=== PATIENT | male | born 1935 | race Caucasian/White ===

== ENCOUNTER 2020-03-29 09:30 | Outpatient (REF) | payer MEDICARE, SELFPAY ==
[2020-03-29 10:29] LABS: Estimated Average Glucose 235 mg/dL; Hemoglobin A1c % 9.8 %
== END 2020-03-29 09:31 | disposition home or self-care (01) ==
LOC: HO.LAB 09:30
PROVIDERS: PCP Internal Medicine; Visit Provider Nurse Practitioner Gerontology
DX: E11.65 Type 2 diabetes mellitus with hyperglycemia (principal)
CPT/HCPCS: 36415; 83036

== ENCOUNTER → 2020-03-30 10:20 | Outpatient (BNVA) | payer MEDICARE, SELFPAY | PROVIDERS: PCP Internal Medicine; Referring Provider Internal Medicine; Visit Provider Nurse Practitioner Gerontology | DX: E11.65 Type 2 diabetes mellitus with hyperglycemia (principal); E11.40 Type 2 diabetes mellitus with diabetic neuropathy, unspecified; E11.21 Type 2 diabetes mellitus with diabetic nephropathy; E78.00 Pure hypercholesterolemia, unspecified; Z79.4 Long term (current) use of insulin | CPT/HCPCS: 99213; Q3014 ==

== ENCOUNTER → 2020-05-10 10:14 | Outpatient (BNVA) | payer MEDICARE, SELFPAY | PROVIDERS: PCP Internal Medicine; Referring Provider Internal Medicine; Visit Provider Nurse Practitioner Family | DX: I48.92 Unspecified atrial flutter (principal); I25.10 Atherosclerotic heart disease of native coronary artery without angina pectoris; I25.5 Ischemic cardiomyopathy; E78.00 Pure hypercholesterolemia, unspecified; Z79.899 Other long term (current) drug therapy; Z95.1 Presence of aortocoronary bypass graft; Z95.810 Presence of automatic (implantable) cardiac defibrillator | CPT/HCPCS: 93005; 99212 ==

== ENCOUNTER 2020-06-02 03:16 | Inpatient (IN) | payer MEDICARE, SELFPAY ==
[2020-06-02] VITALS (14 sets, daily range): BP systolic 97–138; BP diastolic 34–71; PULSE 85–125; RESP 18–34; TEMP 36.9–39; O2SAT 90–96; BMI 22.2
--- NOTE | 2020-06-02 03:23 | ED.GENADULT ---
HPI - General Adult General Chief complaint: Urogenital-Male Stated complaint: hematuria and tremors Time Seen by Provider: 06/02/20 03:20 Source: patient and EMS Mode of arrival: EMS Limitations: no limitations History of Present Illness HPI narrative: patient comes to the emergency room complaining of hematuria since yesterday. Patient states he is urinating bright red blood. Patient also complaining of dysuria, no flank pain, no fever. Patient has history of Alzheimer's and is unable to give accurate history. Per patient's medical history, patient has history of bladder cancer, is currently on Eliquis for atrial flutter, history of Alzheimer's, coronary artery disease and type 2 diabetes MD complaint: hematuria, dysuria Related Data Home Medications Medication Instructions Recorded Confirmed allopurinol 100 mg tablet 100 mg PO DAILY 03/30/20 06/02/20 emtricitabine 200 mg-tenofovir 1 tab PO DAILY 03/30/20 06/02/20 alafenamide fumarate 25 mg tablet insulin glargine 100 unit/mL 30 unit SUBCUT DAILY ml 03/30/20 06/02/20 subcutaneous solution sertraline 25 mg tablet 25 mg PO DAILY 03/30/20 06/02/20 tamsulosin 0.4 mg capsule 0.4 mg PO DAILY 03/30/20 06/02/20 terazosin 1 mg capsule 1 mg PO DAILY 03/30/20 06/02/20 dolutegravir 50 mg tablet 50 mg PO DAILY 04/30/20 06/02/20 donepezil 10 mg tablet 10 mg PO BEDTIME 04/30/20 06/02/20 ezetimibe 10 mg tablet 10 mg PO DAILY 04/30/20 06/02/20 metoprolol succinate 25 mg 25 mg PO DAILY 04/30/20 06/02/20 tablet,extended release 24 hr Previous Rx's Medication Instructions Recorded atorvastatin 80 mg tablet 80 mg PO DAILY 90 Days #90 tab 03/28/20 metformin 500 mg tablet 500 mg PO BID 90 Days #180 tab 03/28/20 insulin lispro 100 unit/mL See Rx Instructions SUBCUT 03/30/20 subcutaneous solution .COMPLEX 30 Days #10 ml apixaban 5 mg tablet 5 mg PO BID 30 Days #60 tab 05/10/20 lansoprazole 30 mg capsule,delayed 30 mg PO DAILY #90 cap 11/18/20 release Allergies Allergy/AdvReac Type Severity Reaction Status Date / Time Penicillins Allergy Intermediate RASH Verified 04/30/20 11:08 Review of Systems Review of Systems: Constitutional denies your chills ENT/Mouth :No Ear Pain, No Nasal Congestion, No Sinus Pain, No Hoarseness, No sore throat, No Rhinorrhea, No Swallowing Difficulty Eyes: No Eye Pain, No Swelling, No Redness, No Foreign Body, No Discharge, No Vision Changes Cardiovascular : No Chest Pain, No SOB, No Dyspnea on Exertion, No Orthopnea, no palpitations Respiratory : No Cough, No Sputum, No Wheezing, No Smoke Exposure, No Dyspnea Gastrointestinal : No Nausea, No Vomiting, No Diarrhea, No Constipation, No abdominal Pain, No Hematochezia, No Melena Genitourinary : patient complaining of dysuria and hematuria Musculoskeletal : No joint pain, No Myalgias, No Joint Swelling Skin : No Skin Lesions, No rash Neuro : No Weakness, No Numbness, No Paresthesias, No Loss of Consciousness, No Dizziness, No Headache Psych : No Anxiety/Panic, No Depression, No SI/HI/AH/VH, No Social Issues, Heme/Lymph: No Bruising, No Bleeding,No Lymphadenopathy Endocrine : No Polyuria, No Polydipsia, No Temperature Intolerance PMFSH Past Medical History Medical History Alzheimer disease Atrial flutter, paroxysmal Coronary artery disease Hemorrhoids HIV positive Hx of bladder cancer Hypercholesterolemia Ischemic cardiomyopathy Low back pain Type 2 diabetes mellitus with hyperglycemia Urethral stricture Surgical History History of appendectomy History of carpal tunnel release History of implantable cardiac defibrillator (ICD) History of mandibular surgery Hx of cardiac cath (~11/2015) Hx of cholecystectomy Hx of coronary artery bypass graft Hx of cystoscopy Hx of eye surgery Hx of lithotripsy Hx of removal of cyst Hx of umbilical hernia repair Family History Family History Father Diabetes Brother Diabetes Social History Social History Alcohol intake: never Smoking Status: Never smoker Use of substances other than those prescribed or required for medical reasons: No Advance Directives: No Physical Exam Vital Signs: Vital Signs: Last Vital Signs Temp 100.4 F 06/02/20 05:02 Pulse 120 H 06/02/20 05:02 Resp 30 H 06/02/20 05:02 BP 128/71 06/02/20 05:02 Pulse Ox 96 06/02/20 05:02 Body Mass Index 22.2 Appearance: Alert. No acute distress. Eyes: Pupils equal, round and reactive to light. ENT: Pharynx normal. Neck: Normal inspection. Neck supple. No lymph nodes noted. No crepitus CVS: Normal heart rate and rhythm. Pulses normal. Normal S1 and S2 Respiratory: No respiratory distress. Breath sounds normal. No Wheezing. No rales Abdomen: Soft , tender to palpation in suprapubic area. No rigidity. No distention. good BS x4 Skin: Skin warm and dry. Normal skin color. Normal skin turgor. Extremities: No lower extremity edema. No lower extremity edema. No Lacerations. No Rash Neuro: Oriented X 3. No motor deficit. No sensory deficit. Moving all extermities. No slurred speech. Course Course Course Narrative: family and patient did not report any fever, however on arrival, patient's temperature initially 98.5 oral, since patient was tachycardic, rectal temperature checked, 102. at this time (4:23am), it is suspected that patient may be septic, possibly from a urinary tract infection, Levaquin was started as emperic treatment. Patient is allergic to penicillin. patient's urinalysis is not convincing for urinary tract infection. , patient does not have an elevated lactic and white blood cell count is within normal limits, etiology is likely viral. patient's bladder was rinsed with van back with CBI, patient's urine is now clear, no longer passing blood or blood clots. It is possible that patient's hematuria secondary to Eliquis versus recurrent bladder cancer Chest x-ray and COVID avid test returned, positive for COVID-19 I discussed the patient with our hospitalist, patient being admitted. Medical Decision Making Lab Data Result diagrams: 06/02/20 03:40 06/02/20 03:40 Labs: Lab Results 06/02/20 06/02/20 06/02/20 Range/Units 03:26 03:40 03:40 WBC 9.3 (4.8-10.8) X10*3/uL RBC 4.22 L (4.60-5.80) X10*6/uL Hgb 14.0 (14.0-18.0) g/dl Hct 42.2 (42-52) % MCV 100.0 H (80-98) fL MCH 33.2 H (27.0-33.0) pg MCHC 33.2 (31.0-36.0) g/dl RDW 14.2 (11.0-16.0) % Plt Count 179 (160-400) X10*3/uL MPV 10.3 (9.4-12.4) fL Immature Gran % (Auto) 0.3 (0.0-0.4) % Neut % (Auto) 89.0 H (45-73) % Lymph % (Auto) 6.5 L (20-40) % [place] % (Auto) 4.0 (2-11) % Eos % (Auto) 0.0 (0-4) % Baso % (Auto) 0.2 (0-2) % Lymph # (Auto) 0.6 L (1.2-4.9) X10*3/uL [place] # (Auto) 0.4 (0.1-1.2) X10*3/uL Eos # (Auto) 0.0 (0.0-0.4) X10*3/uL Baso # (Auto) 0.0 (0.0-0.2) X10*3/uL Abs Immat Gran (auto) 0.03 (0.00-0.03) X10*3/uL Absolute Neuts (auto) 8.3 (2.0-8.3) X10*3/uL Absolute Nucleated RBC 0.000 (0.0-0.012) X10*3/uL Nucleated RBC % (auto) 0.0 (0.0-0.2) /100WBC Smear Tech's Comments VERIFIED Sodium 139 (135-145) mmol/L Potassium 4.1 (3.3-5.1) mmol/l Chloride 103 (96-108) mmol/L Carbon Dioxide 22 (22-29) mmol/L Anion Gap 18 (12-20) BUN 17 H (9-16) mg/dL Creatinine 1.17 (0.5-1.4) mg/dL Estim Creat Clear Calc 44.0 Estimated GFR 59 POC Glucose 246 H (60-115) mg/dL Random Glucose 245 H (60-115) mg/dL Lactic Acid (0.5-2.0) mmol/L Calcium 8.3 L (8.4-10.2) mg/dL Total Bilirubin (0.0-1.0) mg/dL Direct Bilirubin (0.0-0.5) mg/dL AST (5-37) U/L ALT (0-40) U/L Alkaline Phosphatase (39-117) U/L Total Protein (6.5-8.0) g/dL Albumin (3.5-5.0) g/dL Urine Color Urine Appearance Urine pH (5.0-8.0) Ur Specific [place] (1.005-1.025) Urine Protein (NEG-TRACE) MG/DL Urine Glucose (UA) (NEG) MG/DL Urine Ketones (NEG) MG/DL Urine Blood (NEG) Urine Nitrite (NEG) Ur Leukocyte Esterase (NEG) Urine RBC (0) /HPF Urine WBC (0-4) /HPF Ur Squamous Epith Cells /LPF Urine Bacteria /LPF Urine Yeast /HPF COVID-19 (DERIC) (Negative) COVID-19 Clin Com 06/02/20 06/02/20 06/02/20 Range/Units 03:57 04:13 04:13 WBC (4.8-10.8) X10*3/uL RBC (4.60-5.80) X10*6/uL Hgb (14.0-18.0) g/dl Hct (42-52) % MCV (80-98) fL MCH (27.0-33.0) pg MCHC (31.0-36.0) g/dl RDW (11.0-16.0) % Plt Count (160-400) X10*3/uL MPV (9.4-12.4) fL Immature Gran % (Auto) (0.0-0.4) % Neut % (Auto) (45-73) % Lymph % (Auto) (20-40) % [place] % (Auto) (2-11) % Eos % (Auto) (0-4) % Baso % (Auto) (0-2) % Lymph # (Auto) (1.2-4.9) X10*3/uL [place] # (Auto) (0.1-1.2) X10*3/uL Eos # (Auto) (0.0-0.4) X10*3/uL Baso # (Auto) (0.0-0.2) X10*3/uL Abs Immat Gran (auto) (0.00-0.03) X10*3/uL Absolute Neuts (auto) (2.0-8.3) X10*3/uL Absolute Nucleated RBC (0.0-0.012) X10*3/uL Nucleated RBC % (auto) (0.0-0.2) /100WBC Smear Tech's Comments Sodium (135-145) mmol/L Potassium (3.3-5.1) mmol/l Chloride (96-108) mmol/L Carbon Dioxide (22-29) mmol/L Anion Gap (12-20) BUN (9-16) mg/dL Creatinine (0.5-1.4) mg/dL Estim Creat Clear Calc Estimated GFR POC Glucose (60-115) mg/dL Random Glucose (60-115) mg/dL Lactic Acid 2.0 (0.5-2.0) mmol/L Calcium (8.4-10.2) mg/dL Total Bilirubin 0.4 (0.0-1.0) mg/dL Direct Bilirubin 0.3 (0.0-0.5) mg/dL AST 38 H (5-37) U/L ALT 39 (0-40) U/L Alkaline Phosphatase 100 (39-117) U/L Total Protein 6.9 (6.5-8.0) g/dL Albumin 3.9 (3.5-5.0) g/dL Urine Color BROWN Urine Appearance TURBID Urine pH 6.0 (5.0-8.0) Ur Specific [place] 1.020 (1.005-1.025) Urine Protein 3+ H (NEG-TRACE) MG/DL Urine Glucose (UA) 250 H (NEG) MG/DL Urine Ketones 15 (NEG) MG/DL Urine Blood 3+ H (NEG) Urine Nitrite NEG (NEG) Ur Leukocyte Esterase 2+ H (NEG) Urine RBC TNTC H (0) /HPF Urine WBC 30-49 H (0-4) /HPF Ur Squamous Epith Cells 2+ /LPF Urine Bacteria 2+ /LPF Urine Yeast 3+ /HPF COVID-19 (DERIC) (Negative) COVID-19 Clin Com 06/02/20 Range/Units 04:24 WBC (4.8-10.8) X10*3/uL RBC (4.60-5.80) X10*6/uL Hgb (14.0-18.0) g/dl Hct (42-52) % MCV (80-98) fL MCH (27.0-33.0) pg MCHC (31.0-36.0) g/dl RDW (11.0-16.0) % Plt Count (160-400) X10*3/uL MPV (9.4-12.4) fL Immature Gran % (Auto) (0.0-0.4) % Neut % (Auto) (45-73) % Lymph % (Auto) (20-40) % [place] % (Auto) (2-11) % Eos % (Auto) (0-4) % Baso % (Auto) (0-2) % Lymph # (Auto) (1.2-4.9) X10*3/uL [place] # (Auto) (0.1-1.2) X10*3/uL Eos # (Auto) (0.0-0.4) X10*3/uL Baso # (Auto) (0.0-0.2) X10*3/uL Abs Immat Gran (auto) (0.00-0.03) X10*3/uL Absolute Neuts (auto) (2.0-8.3) X10*3/uL Absolute Nucleated RBC (0.0-0.012) X10*3/uL Nucleated RBC % (auto) (0.0-0.2) /100WBC Smear Tech's Comments Sodium (135-145) mmol/L Potassium (3.3-5.1) mmol/l Chloride (96-108) mmol/L Carbon Dioxide (22-29) mmol/L Anion Gap (12-20) BUN (9-16) mg/dL Creatinine (0.5-1.4) mg/dL Estim Creat Clear Calc Estimated GFR POC Glucose (60-115) mg/dL Random Glucose (60-115) mg/dL Lactic Acid (0.5-2.0) mmol/L Calcium (8.4-10.2) mg/dL Total Bilirubin (0.0-1.0) mg/dL Direct Bilirubin (0.0-0.5) mg/dL AST (5-37) U/L ALT (0-40) U/L Alkaline Phosphatase (39-117) U/L Total Protein (6.5-8.0) g/dL Albumin (3.5-5.0) g/dL Urine Color Urine Appearance Urine pH (5.0-8.0) Ur Specific [place] (1.005-1.025) Urine Protein (NEG-TRACE) MG/DL Urine Glucose (UA) (NEG) MG/DL Urine Ketones (NEG) MG/DL Urine Blood (NEG) Urine Nitrite (NEG) Ur Leukocyte Esterase (NEG) Urine RBC (0) /HPF Urine WBC (0-4) /HPF Ur Squamous Epith Cells /LPF Urine Bacteria /LPF Urine Yeast /HPF COVID-19 (DERIC) Positive A (Negative) COVID-19 Clin Com See Note Imaging Data Chest x-ray: My impression: patient has patchy bilateral infiltrates Radiologist's impression: Single lead AICD stably position. Cardiomegaly and pulmonary venous congestion. Bilateral hazy and patchy airspace opacities could reflect pulmonary edema or multifocal pneumonia. Small bilateral pleural effusions and accompanying atelectasis. No pneumothorax. XR/XR chest 1V IMPRESSION: Bilateral nonspecific patchy and hazy airspace opacities. Edema or pneumonia could have this appearance. ECG Data Attestation: I personally reviewed and interpreted this ECG as follows: ( atrial fibrillation, heart rate 121, QTC 485, nonspecific T-wave abnormalities in lateral leads) Discharge Plan Discharge Clinical Impression: Hematuria, Pneumonia due to COVID-19 virus Patient Disposition: Admitted As Inpatient Prescriptions: No Action atorvastatin 80 mg tablet 80 mg PO DAILY 90 Days Qty: 90 RF: 1 metformin 500 mg tablet 500 mg PO BID 90 Days Qty: 180 RF: 0 lansoprazole 30 mg capsule,delayed release(DR/EC) 30 mg PO DAILY Qty: 90 RF: 1 donepezil 10 mg tablet 10 mg PO BEDTIME RF: 0 Tivicay 50 mg tablet 50 mg PO DAILY RF: 0 metoprolol succinate 25 mg tablet extended release 24 hr 25 mg PO DAILY RF: 0 ezetimibe 10 mg tablet 10 mg PO DAILY RF: 0 Eliquis 5 mg tablet 5 mg PO BID 30 Days Qty: 60 RF: 5 sertraline 25 mg tablet 25 mg PO DAILY RF: 0 Lantus U-100 Insulin 100 unit/mL solution 30 unit subcut DAILY RF: 0 allopurinol 100 mg tablet 100 mg PO DAILY RF: 0 tamsulosin 0.4 mg capsule 0.4 mg PO DAILY RF: 0 Descovy 200-25 mg tablet 1 tab PO DAILY RF: 0 terazosin 1 mg capsule 1 mg PO DAILY RF: 0 insulin lispro 100 unit/mL solution See Rx Instructions subcut .COMPLEX 30 Days Qty: 10 RF: 3
[2020-06-02 03:31] LABS: Glucose, Whole Blood 246 mg/dL (60-115)
[2020-06-02 03:44] LABS: Basophils Percent Auto 0.2 % (0-2); Hematocrit 42.2 % (42-52); Imm Gran Abs Auto 0.03 X10*3/uL (0.00-0.03); Imm Gran Pct Auto 0.3 % (0.0-0.4); Lymphocytes Absolute Auto 0.6 X10*3/uL (1.2-4.9); Lymphocytes Percent Auto 6.5 % (20-40); MANUAL DIFF FLAG SCAN; Mean Corpuscular HGB Conc 33.2 g/dl (31.0-36.0); Mean Corpuscular Hemoglobin 33.2 pg (27.0-33.0); Mean Platelet Volume 10.3 fL (9.4-12.4); Monocytes Absolute Auto 0.4 X10*3/uL (0.1-1.2); Neutrophils Absolute Auto 8.3 X10*3/uL (2.0-8.3); Platelet Count 179 X10*3/uL (160-400); Red Blood Count 4.22 X10*6/uL (4.60-5.80); Red Cell Distribution Width 14.2 % (11.0-16.0); SCAN SMEAR FLAG 1; White Blood Count 9.3 X10*3/uL (4.8-10.8)
[2020-06-02 04:05] LABS: SLIDE REVIEW VERIFIED
[2020-06-02 04:15] LABS: Appearance Urine TURBID; Color Urine BROWN; Glucose Urine UA 250 MG/DL (NEG)
[2020-06-02 04:16] LABS: Leukocyte Esterase Urine 2+ (NEG); Nitrite Urine NEG (NEG); Urine Blood 3+ (NEG); Urine Ketones 15 MG/DL (NEG); Urine Protein 3+ MG/DL (NEG-TRACE)
[2020-06-02 04:17] LABS: Bacteria Urine 2+ /LPF; RBC Urine TNTC /HPF (0); Squamous Epithelial Cell Urine 2+ /LPF; WBC Urine 30-49 /HPF (0-4)
[2020-06-02] MEDS: 0.9 % Sodium Chloride 1,000 ML 999 ML IVCONT ×2 (04:17→05:06)
--- NOTE | 2020-06-02 04:17 | XR_ITS ---
EXAMINATION: XR CHEST CLINICAL INFORMATION: Fever COMPARISON: CT chest dated 10/23/2019 TECHNIQUE: Frontal view of the chest was obtained. FINDINGS: Single lead AICD stably position. Cardiomegaly and pulmonary venous congestion. Bilateral hazy and patchy airspace opacities could reflect pulmonary edema or multifocal pneumonia. Small bilateral pleural effusions and accompanying atelectasis. No pneumothorax. XR/XR chest 1V IMPRESSION: Bilateral nonspecific patchy and hazy airspace opacities. Edema or pneumonia could have this appearance.
[2020-06-02 04:23] LABS: Anion Gap 18 (12-20); Blood Urea Nitrogen 17 mg/dL (9-16); Calcium 8.3 mg/dL (8.4-10.2); Carbon Dioxide 22 mmol/L (22-29); Chloride 103 mmol/L (96-108); Glucose Random 245 mg/dL (60-115); Potassium 4.1 mmol/l (3.3-5.1); Sodium 139 mmol/L (135-145)
[2020-06-02 04:25] LABS: Estimated Glomerular Filt Rate 59
[2020-06-02] MEDS: levoFLOXacin/D5W 750 MG/150 ML PIGGYBACK 100 MG IV (04:27)
[2020-06-02 04:43] LABS: COVID-19 Test Positive (Negative)
--- NOTE | 2020-06-02 05:02 | ECG_ITS ---
Test Reason : SOB Blood Pressure : / mmHG Vent. Rate : 121 BPM Atrial Rate : 122 BPM P-R Int : 000 ms QRS Dur : 110 ms QT Int : 342 ms P-R-T Axes : 000 012 150 degrees QTc Int : [address] & T wave abnormality, consider lateral ischemia Abnormal ECG When compared with ECG of 23-OCT-2019 09:56, Vent. rate has increased BY 76 BPM Referred By: Dena Miller Electronically Signed By:BRIA BARRETT
[2020-06-02 05:03] LABS: Alanine Aminotransferase 39 U/L (0-40); Albumin Level 3.9 g/dL (3.5-5.0); Alkaline Phosphatase 100 U/L (39-117); Aspartate Amino Transferase 38 U/L (5-37); Bilirubin Direct 0.3 mg/dL (0.0-0.5); Bilirubin Total 0.4 mg/dL (0.0-1.0); Total Protein 6.9 g/dL (6.5-8.0)
[2020-06-02] MEDS: Acetaminophen 325 MG TABLET 650 MG PO (05:06)
--- NOTE | 2020-06-02 06:04 | PM.IMHP ---
History of Present Illness Date of Service: 06/02/20 Chief Complaint: Hematuria, this is an 84-year-old male with past medical history of Alzheimer's disease, CAD, ischemic cardiomyopathy, gout, hypertension, hyperlipidemia, diabetes, hematuria, GERD, arthritis, HIV who presents to the hospital from home with hematuria and dysuria. Patient has dementia and denies any symptoms. When asked if he has any dysuria, any shortness of breath, any cough patient says no to all my questions. On arrival to the ED patient was found to have a rectal temp of 102.2?, heart rate of 118, respiratory rate of 30. labs are significant for normal WBC count of 9.3, hemoglobin of 14, BUN of 17, creatinine of 1.17 with a baseline around 0.99, AST of 38, UA that is positive for leukocyte Estrace, urine blood, and WBC. has CBI placed in the ED with resolution of hematuria Past medical history: CAD, ischemic cardiomyopathy, gout, hypertension, hyperlipidemia, mild dementia, diabetes, history of GERD, arthritis, HIV, history of bladder cancer past surgical history: Cystoscopy, TURP, anal fistula repair, appendectomy, cholecystectomy, umbilical hernia repair, history of carpal tunnel release, status post single-chamber ICD in April 2018 family history: Heart disease and diabetes social history: Comes from home, lives with , no tobacco or illicit drugs Review of Systems Review of Systems: Yes Unobtainable due to mental status [facility] Medical History Alzheimer disease Atrial flutter, paroxysmal Coronary artery disease Hemorrhoids HIV positive Hx of bladder cancer Hypercholesterolemia Ischemic cardiomyopathy Low back pain Type 2 diabetes mellitus with hyperglycemia Urethral stricture Family History Father Diabetes Brother Diabetes Surgical History History of appendectomy History of carpal tunnel release History of implantable cardiac defibrillator (ICD) History of mandibular surgery Hx of cardiac cath (~11/2015) Hx of cholecystectomy Hx of coronary artery bypass graft Hx of cystoscopy Hx of eye surgery Hx of lithotripsy Hx of removal of cyst Hx of umbilical hernia repair Social History Alcohol intake: never Smoking Status: Never smoker Use of substances other than those prescribed or required for medical reasons: No Advance Directives: No Meds Allergies Allergy/AdvReac Type Severity Reaction Status Date / Time Penicillins Allergy Intermediate RASH Verified 04/30/20 11:08 Home Medications Medication Instructions Recorded Confirmed Type allopurinol 100 mg tablet 100 mg PO DAILY 03/30/20 06/02/20 History emtricitabine 200 mg-tenofovir 1 tab PO DAILY 03/30/20 06/02/20 History alafenamide fumarate 25 mg tablet insulin glargine 100 unit/mL 30 unit SUBCUT DAILY ml 03/30/20 06/02/20 History subcutaneous solution sertraline 25 mg tablet 25 mg PO DAILY 03/30/20 06/02/20 History tamsulosin 0.4 mg capsule 0.4 mg PO DAILY 03/30/20 06/02/20 History terazosin 1 mg capsule 1 mg PO DAILY 03/30/20 06/02/20 History dolutegravir 50 mg tablet 50 mg PO DAILY 04/30/20 06/02/20 History donepezil 10 mg tablet 10 mg PO BEDTIME 04/30/20 06/02/20 History ezetimibe 10 mg tablet 10 mg PO DAILY 04/30/20 06/02/20 History metoprolol succinate 25 mg 25 mg PO DAILY 04/30/20 06/02/20 History tablet,extended release 24 hr Physical Exam Vital Signs and Narrative: Vital Signs: Last Vital Signs Temp 100.4 F 06/02/20 05:02 Pulse 120 H 06/02/20 05:02 Resp 30 H 06/02/20 05:02 BP 128/71 06/02/20 05:02 Pulse Ox 96 06/02/20 05:02 Body Mass Index 22.2 Const: General: cooperative and no acute distress Eyes: General: appearance normal, both eyes and all related structures Pupils: Equal, round and reactive pupils present Resp: Effort & Inspection: normal respiratory effort and able to speak in complete sentences Auscultation: clear to auscultation bilaterally Cardio: Rate: regular rate Rhythm: regular rhythm GI: Palpation (GI): Soft to palpation Auscultation: normal bowel sounds Skin: General skin exam: no rashes or lesions noted Neuro: Cranial nerves: Yes Equal, round and reactive pupils present Cognition (Neuro): normal cognition Extrem: General: Yes normal to inspection and Yes no pedal edema Results Labs CBC and Chem 7: 06/02/20 03:40 06/02/20 03:40 Labs: Laboratory Results - last 24 hr 06/02/20 06/02/20 06/02/20 03:26 03:40 03:40 MCV 100.0 H MCH 33.2 H MCHC 33.2 RDW 14.2 Plt Count 179 MPV 10.3 Immature Gran % (Auto) 0.3 Neut % (Auto) 89.0 H Lymph % (Auto) 6.5 L [place] % (Auto) 4.0 Eos % (Auto) 0.0 Baso % (Auto) 0.2 Lymph # (Auto) 0.6 L [place] # (Auto) 0.4 Eos # (Auto) 0.0 Baso # (Auto) 0.0 Abs Immat Gran (auto) 0.03 Absolute Neuts (auto) 8.3 Absolute Nucleated RBC 0.000 Nucleated RBC % (auto) 0.0 Smear Tech's Comments VERIFIED Anion Gap 18 Creatinine 1.17 Estim Creat Clear Calc 44.0 Estimated GFR 59 POC Glucose 246 H Random Glucose 245 H Lactic Acid Calcium 8.3 L Total Bilirubin Direct Bilirubin AST ALT Alkaline Phosphatase Total Protein Albumin Urine Color Urine Appearance Urine pH Ur Specific [place] Urine Protein Urine Glucose (UA) Urine Ketones Urine Blood Urine Nitrite Ur Leukocyte Esterase Urine RBC Urine WBC Ur Squamous Epith Cells Urine Bacteria Urine Yeast COVID-19 (DERIC) COVID-19 Clin Com 06/02/20 06/02/20 06/02/20 03:57 04:13 04:13 MCV MCH MCHC RDW Plt Count MPV Immature Gran % (Auto) Neut % (Auto) Lymph % (Auto) [place] % (Auto) Eos % (Auto) Baso % (Auto) Lymph # (Auto) [place] # (Auto) Eos # (Auto) Baso # (Auto) Abs Immat Gran (auto) Absolute Neuts (auto) Absolute Nucleated RBC Nucleated RBC % (auto) Smear Tech's Comments Anion Gap Creatinine Estim Creat Clear Calc Estimated GFR POC Glucose Random Glucose Lactic Acid 2.0 Calcium Total Bilirubin 0.4 Direct Bilirubin 0.3 AST 38 H ALT 39 Alkaline Phosphatase 100 Total Protein 6.9 Albumin 3.9 Urine Color BROWN Urine Appearance TURBID Urine pH 6.0 Ur Specific [place] 1.020 Urine Protein 3+ H Urine Glucose (UA) 250 H Urine Ketones 15 Urine Blood 3+ H Urine Nitrite NEG Ur Leukocyte Esterase 2+ H Urine RBC TNTC H Urine WBC 30-49 H Ur Squamous Epith Cells 2+ Urine Bacteria 2+ Urine Yeast 3+ COVID-19 (DERIC) COVID-19 Clin Com 06/02/20 04:24 MCV MCH MCHC RDW Plt Count MPV Immature Gran % (Auto) Neut % (Auto) Lymph % (Auto) [place] % (Auto) Eos % (Auto) Baso % (Auto) Lymph # (Auto) [place] # (Auto) Eos # (Auto) Baso # (Auto) Abs Immat Gran (auto) Absolute Neuts (auto) Absolute Nucleated RBC Nucleated RBC % (auto) Smear Tech's Comments Anion Gap Creatinine Estim Creat Clear Calc Estimated GFR POC Glucose Random Glucose Lactic Acid Calcium Total Bilirubin Direct Bilirubin AST ALT Alkaline Phosphatase Total Protein Albumin Urine Color Urine Appearance Urine pH Ur Specific [place] Urine Protein Urine Glucose (UA) Urine Ketones Urine Blood Urine Nitrite Ur Leukocyte Esterase Urine RBC Urine WBC Ur Squamous Epith Cells Urine Bacteria Urine Yeast COVID-19 (DERIC) Positive A COVID-19 Clin Com See Note Imaging Radiologist's Impressions: Impressions Chest X-Ray 06/02/20 04:17 IMPRESSION: Bilateral nonspecific patchy and hazy airspace opacities. Edema or pneumonia could have this appearance. Assessment and Plan (1) Pneumonia due to COVID-19 virus: Status: Acute (2) Hematuria: Qualifiers: Hematuria type: gross Qualified Code(s): R31.0 - Gross hematuria Status: Acute (3) Hx of coronary artery bypass graft: Problem details: SMITH to LAD, SVG to D1, D2, R PDA Status: Acute (4) Atrial flutter, paroxysmal: Problem details: April 2020 Status: Acute (5) Diabetes mellitus: Status: Acute this is an 84-year-old male with past medical history as above who presents to the hospital with complaints of hematuria found to have hypoxia and COVID-19 pneumonia. # Sepsis - most likely multifactorial secondary to COVID-19 as well UTI - patient tachycardic, tachypneic, febrile, no leukocytosis - UA positive, also COVID positive with x-ray showing bilateral nonspecific patchy infiltrates plan: - will start patient on ceftriaxone for treatment of the UTI, dexamethasone for COVID-19 - blood and urine cultures have been collected # COVID-19 pneumonia - bilateral patchy infiltrate on chest x-ray, patient satting 92% on 2 L of oxygen at this time, no recorded hypoxia Plan: - Will start him on dexamethasone 4 mg daily, follow respiratory status closely # hematuria - he has history of hematuria in the past, most likely related to UTI versus bladder source this patient has history of TURP plan: - Status post 1 bag of CBI, currently no hematuria - has UTI, treat with antibiotics - urology consulted - hemoglobin stable follow CBC # history of coronary artery disease status post CABG - continue home medications # paroxysmal AFib - continue apixaban # diabetes mellitus - low-dose sliding scale insulin, continue home dose insulin - diabetic diet DVT prophylaxis: Apixaban
--- NOTE | 2020-06-02 06:16 | PC.NURSE ---
SUHAS HOLLY SPOKE WITH , VERIFIED PMHX. PT HAD CATARACT SURGERY 2 WEEKS AGO. NOW AWARE OG PT'S POSITIVE COVID RESULT. REPORTS PT IS A FULL CODE.
[2020-06-02] MEDS: cefTRIAXone sodium 1 GM in 0.9 % Sodium Chloride 50 ML IV (08:25)
[2020-06-02 10:18] LABS: Glucose, Whole Blood 189 mg/dL (60-115)
[2020-06-02 10:31] LABS: Hematocrit 38.7 % (42-52); Hemoglobin 12.8 g/dl (14.0-18.0); Mean Corpuscular HGB Conc 33.1 g/dl (31.0-36.0); Mean Corpuscular Hemoglobin 33.5 pg (27.0-33.0); Mean Corpuscular Volume 101.3 fL (80-98); Mean Platelet Volume 10.3 fL (9.4-12.4); Platelet Count 161 X10*3/uL (160-400); Red Blood Count 3.82 X10*6/uL (4.60-5.80); Red Cell Distribution Width 14.5 % (11.0-16.0); White Blood Count 11.2 X10*3/uL (4.8-10.8)
[2020-06-02] MEDS: 0.9 % Sodium Chloride Flush 3 ML SYRINGE IVFLUSH ×2 (11:56→18:06)
[2020-06-02] MEDS: dexAMETHasone sod phosphate 4 MG/ML VIAL IVPUSH (11:56)
[2020-06-02] MEDS: Doxazosin Mesylate 1 MG TABLET PO (11:57)
[2020-06-02] MEDS: Omeprazole 20 MG CAPSULE.DR PO (11:57)
[2020-06-02] MEDS: Emtricitabine/Tenofov Alafenam TABLET 1 TAB PO (11:57)
[2020-06-02] MEDS: Sertraline HCL 25 MG TABLET PO (11:58)
[2020-06-02] MEDS: Tamsulosin HCL 0.4 MG CAPSULE PO (11:58)
[2020-06-02] MEDS: Dolutegravir Sodium 50 MG TABLET PO (11:58)
[2020-06-02] MEDS: Metoprolol Succinate ER 25 MG TAB.ER.24H PO (11:58)
[2020-06-02] MEDS: allopurinoL 100 MG TABLET PO (11:59)
[2020-06-02] MEDS: Insulin Glargine,Hum.rec.anlog 100 UNIT/ML 10 ML VIAL 30 UNIT SUBCUT (11:59)
[2020-06-02] MEDS: Atorvastatin Calcium 80 MG TABLET PO (11:59)
[2020-06-02] MEDS: Ezetimibe 10 MG TABLET PO (11:59)
[2020-06-02 12:13] LABS: Glucose, Whole Blood 225 mg/dL (60-115)
[2020-06-02] MEDS: Insulin Lispro 100 UNIT/ML 3 ML VIAL SUBCUT (12:34)
--- NOTE | 2020-06-02 14:18 | PM.UROCN ---
History of Present Illness Consult details Consult date: 06/02/20 Narrative: 84-year-old male admitted to the hospital secondary to hematuria Had been on anticoagulation secondary to atrial fibrillation Background of dementia makes him a poor historian In addition has been found to be COVID positive Catheter examined. This was flushed in the bedside. Small clots removed. Irrigant improved Would continue with clot irrigation p.r.n. Should settle. This is an issue with anticoagulation and BPH. [facility] Past Medical History Medical History Alzheimer disease Atrial flutter, paroxysmal Coronary artery disease Hemorrhoids HIV positive Hx of bladder cancer Hypercholesterolemia Ischemic cardiomyopathy Low back pain Type 2 diabetes mellitus with hyperglycemia Urethral stricture Family History Family History Father Diabetes Brother Diabetes Surgical History Surgical History History of appendectomy History of carpal tunnel release History of implantable cardiac defibrillator (ICD) History of mandibular surgery Hx of cardiac cath (~11/2015) Hx of cholecystectomy Hx of coronary artery bypass graft Hx of cystoscopy Hx of eye surgery Hx of lithotripsy Hx of removal of cyst Hx of umbilical hernia repair Social History Social History Household Members: Spouse Housing: Unknown / Unable to assess Alcohol intake: never Smoking Status: Never smoker Use of substances other than those prescribed or required for medical reasons: No Advance Directives: No Do you have thoughts of harming others: None Meds Allergies Allergy/AdvReac Type Severity Reaction Status Date / Time Penicillins Allergy Intermediate RASH Verified 04/30/20 11:08 Home Medications Medication Instructions Recorded Confirmed Type allopurinol 100 mg tablet 100 mg PO DAILY 03/30/20 06/02/20 History emtricitabine 200 mg-tenofovir 1 tab PO DAILY 03/30/20 06/02/20 History alafenamide fumarate 25 mg tablet insulin glargine 100 unit/mL 30 unit SUBCUT DAILY ml 03/30/20 06/02/20 History subcutaneous solution sertraline 25 mg tablet 25 mg PO DAILY 03/30/20 06/02/20 History tamsulosin 0.4 mg capsule 0.4 mg PO DAILY 03/30/20 06/02/20 History terazosin 1 mg capsule 1 mg PO DAILY 03/30/20 06/02/20 History dolutegravir 50 mg tablet 50 mg PO DAILY 04/30/20 06/02/20 History donepezil 10 mg tablet 10 mg PO BEDTIME 04/30/20 06/02/20 History ezetimibe 10 mg tablet 10 mg PO DAILY 04/30/20 06/02/20 History metoprolol succinate 25 mg 25 mg PO DAILY 04/30/20 06/02/20 History tablet,extended release 24 hr Physical Exam Vital Signs: Vital Signs: Last Vital Signs Temp 100.4 F 06/02/20 12:00 Pulse 124 H 06/02/20 12:00 Resp 32 H 06/02/20 12:00 BP 97/64 06/02/20 12:00 Pulse Ox 94 06/02/20 12:00 Body Mass Index 22.2 Const: General: cooperative, healthy appearing, comfortable and no acute distress Nutritional Appearance: average body habitus Orientation/consciousness: oriented to person, oriented to place and oriented to time Eyes: General: appearance normal, both eyes and all related structures Chest: Chest palpation & inspection: normal inspection of the chest Resp: Effort & Inspection: normal respiratory effort Cardio: Rate: regular rate GI: Inspection: Yes normal to inspection Skin: Hair: normal Neuro: General: oriented to person, oriented to place and oriented to time Extrem: General: Yes normal to inspection Results Labs Result diagrams: 06/02/20 10:02 06/02/20 03:40 Labs: Abnormal lab results 06/02/20 06/02/20 06/02/20 Range/Units 03:26 03:40 03:40 WBC (4.8-10.8) X10*3/uL RBC 4.22 L (4.60-5.80) X10*6/uL Hgb (14.0-18.0) g/dl Hct (42-52) % MCV 100.0 H (80-98) fL MCH 33.2 H (27.0-33.0) pg Neut % (Auto) 89.0 H (45-73) % Lymph % (Auto) 6.5 L (20-40) % Lymph # (Auto) 0.6 L (1.2-4.9) X10*3/uL BUN 17 H (9-16) mg/dL POC Glucose 246 H (60-115) mg/dL Random Glucose 245 H (60-115) mg/dL Calcium 8.3 L (8.4-10.2) mg/dL AST (5-37) U/L Urine Protein (NEG-TRACE) MG/DL Urine Glucose (UA) (NEG) MG/DL Urine Blood (NEG) Ur Leukocyte Esterase (NEG) Urine RBC (0) /HPF Urine WBC (0-4) /HPF COVID-19 (DERIC) (Negative) 06/02/20 06/02/20 06/02/20 Range/Units 03:57 04:13 04:24 WBC (4.8-10.8) X10*3/uL RBC (4.60-5.80) X10*6/uL Hgb (14.0-18.0) g/dl Hct (42-52) % MCV (80-98) fL MCH (27.0-33.0) pg Neut % (Auto) (45-73) % Lymph % (Auto) (20-40) % Lymph # (Auto) (1.2-4.9) X10*3/uL BUN (9-16) mg/dL POC Glucose (60-115) mg/dL Random Glucose (60-115) mg/dL Calcium (8.4-10.2) mg/dL AST 38 H (5-37) U/L Urine Protein 3+ H (NEG-TRACE) MG/DL Urine Glucose (UA) 250 H (NEG) MG/DL Urine Blood 3+ H (NEG) Ur Leukocyte Esterase 2+ H (NEG) Urine RBC TNTC H (0) /HPF Urine WBC 30-49 H (0-4) /HPF COVID-19 (DERIC) Positive A (Negative) 06/02/20 06/02/20 06/02/20 Range/Units 08:07 10:02 12:06 WBC 11.2 H (4.8-10.8) X10*3/uL RBC 3.82 L (4.60-5.80) X10*6/uL Hgb 12.8 L (14.0-18.0) g/dl Hct 38.7 L (42-52) % MCV 101.3 H (80-98) fL MCH 33.5 H (27.0-33.0) pg Neut % (Auto) (45-73) % Lymph % (Auto) (20-40) % Lymph # (Auto) (1.2-4.9) X10*3/uL BUN (9-16) mg/dL POC Glucose 189 H 225 H (60-115) mg/dL Random Glucose (60-115) mg/dL Calcium (8.4-10.2) mg/dL AST (5-37) U/L Urine Protein (NEG-TRACE) MG/DL Urine Glucose (UA) (NEG) MG/DL Urine Blood (NEG) Ur Leukocyte Esterase (NEG) Urine RBC (0) /HPF Urine WBC (0-4) /HPF COVID-19 (DERIC) (Negative) Short CBC 06/02/20 06/02/20 Range/Units 03:40 10:02 WBC 9.3 11.2 H (4.8-10.8) X10*3/uL Hgb 14.0 12.8 L (14.0-18.0) g/dl Hct 42.2 38.7 L (42-52) % Plt Count 179 161 (160-400) X10*3/uL BMP 06/02/20 03:40 Sodium 139 Potassium 4.1 Chloride 103 Carbon Dioxide 22 BUN 17 H Creatinine 1.17 Calcium 8.3 L Liver Function 06/02/20 Range/Units 04:13 Total Bilirubin 0.4 (0.0-1.0) mg/dL Direct Bilirubin 0.3 (0.0-0.5) mg/dL AST 38 H (5-37) U/L ALT 39 (0-40) U/L Alkaline Phosphatase 100 (39-117) U/L Albumin 3.9 (3.5-5.0) g/dL Urine 06/02/20 Range/Units 03:57 Urine Color BROWN Urine Appearance TURBID Urine pH 6.0 (5.0-8.0) Ur Specific [place] 1.020 (1.005-1.025) Urine Protein 3+ H (NEG-TRACE) MG/DL Urine Glucose (UA) 250 H (NEG) MG/DL All other labs normal. Assessment and Plan (1) Hematuria: Qualifiers: Hematuria type: gross Qualified Code(s): R31.0 - Gross hematuria Status: Acute From a urologic perspective recommend hold all anticoagulation The should be discussed with Cardiology Procedures Procedure Note Procedure Note: catheter irrigation 22 [place] hematuria catheter irrigated Clots obtained vigorous irrigation for 10 minutes
--- NOTE | 2020-06-02 14:44 | MHC.CM.PN ---
Pt is presently in ICU and unable to participate in CM assessment. Information obtained from EMR and phone call to pt's spouse, Marianela. Per Marianela, pt was functioning mostly independently at home - either her or her son with whom pt resides, would provide transportation and any other care pt may need. Pt has a cane - no services at this time. Although it is unknown what pt's level of functioning will be if/when he recovers, at the very least, he will benefit from skilled RN visits if he is able to return to home. Spouse chose [facility] - referral made. CM to follow for changes in D/C planning. Family can transport home
[2020-06-02 21:38] LABS: Glucose, Whole Blood 178 mg/dL (60-115)
[2020-06-03] MEDS: 0.9 % Sodium Chloride Flush 3 ML SYRINGE IVFLUSH ×4 (01:35→20:22)
[2020-06-03 02:59] VITALS: O2SAT 93
[2020-06-03 03:24] VITALS: BP 121/95; PULSE 102; RESP 32; TEMP 37.2; O2SAT 93
[2020-06-03 07:29] LABS: Glucose, Whole Blood 152 mg/dL (60-115)
[2020-06-03 07:55] VITALS: BP 120/71; PULSE 93; RESP 22; TEMP 36.7; O2SAT 97
[2020-06-03] MEDS: cefTRIAXone sodium 1 GM in 0.9 % Sodium Chloride 50 ML IV (08:09)
[2020-06-03] MEDS: dexAMETHasone sod phosphate 4 MG/ML VIAL IVPUSH (08:09)
[2020-06-03 10:39] LABS: Basophils Percent Auto 0.1 % (0-2); Hematocrit 41.1 % (42-52); Hemoglobin 13.6 g/dl (14.0-18.0); Imm Gran Abs Auto 0.05 X10*3/uL (0.00-0.03); Imm Gran Pct Auto 0.6 % (0.0-0.4); Lymphocytes Absolute Auto 0.5 X10*3/uL (1.2-4.9); Lymphocytes Percent Auto 6.8 % (20-40); MANUAL DIFF FLAG SCAN; Mean Corpuscular HGB Conc 33.1 g/dl (31.0-36.0); Mean Corpuscular Hemoglobin 33.3 pg (27.0-33.0); Mean Corpuscular Volume 100.5 fL (80-98); Mean Platelet Volume 10.8 fL (9.4-12.4); Monocytes Absolute Auto 0.4 X10*3/uL (0.1-1.2); Neutrophils Percent Auto 87.5 % (45-73); Platelet Count 156 X10*3/uL (160-400); Red Blood Count 4.09 X10*6/uL (4.60-5.80); Red Cell Distribution Width 14.6 % (11.0-16.0); SCAN SMEAR FLAG 1
[2020-06-03 10:55] LABS: D Dimer 360 NG/ML
[2020-06-03 11:03] LABS: Glucose, Whole Blood 183 mg/dL (60-115)
[2020-06-03 11:11] LABS: C Reactive Protein 11.89 mg/dL (< or = 0.50); Lactate Dehydrogenase 323 U/L (118-273)
--- NOTE | 2020-06-03 11:19 | HO.PM.IMPN ---
Subjective Subjective Date of Service: 06/03/20 Interval History: Seen in f/u for sespsis, covid, UTI and hematuria. He's wicked confused and wants to go home, not sure about his baseline MS Review of Systems Review of Systems: Yes Unobtainable due to mental status Physical Exam Vital Signs: Vital Signs: Last Vital Signs Temp 98.0 F 06/03/20 07:55 Pulse 93 06/03/20 07:55 Resp 22 H 06/03/20 07:55 BP 120/71 06/03/20 07:55 Pulse Ox 97 06/03/20 07:55 Body Mass Index 22.2 General: oriented to self Resp: normal respiratory effort CVS: S1,S2,RRR GI: +BS, NT, no distention Skin: No rash Flores cath is clear Neuro: motor grossly intact Psych: appropriate affect Objective Data Current Medications Generic Name Dose Route Start Last Admin Trade Name Freq PRN Reason Stop Dose Admin Acetaminophen 650 mg 06/02/20 07:38 Acetaminophen 325 Mg Tablet PO Q6H PRN Pain, Mild (Pain Scale 1-3) Allopurinol 100 mg 06/02/20 09:00 06/02/20 11:59 Allopurinol 100 Mg Tablet PO 100 mg DAILY BING Administration Atorvastatin Calcium 80 mg 06/02/20 09:00 06/02/20 11:59 Atorvastatin Calcium 80 Mg Tablet PO 80 mg DAILY BING Administration Dexamethasone Sodium Phosphate 4 mg 06/02/20 09:00 06/03/20 08:09 Dexamethasone Sod Phosphate 4 Mg/Ml Vial IVPUSH 4 mg DAILY BING Administration Docusate Sodium 100 mg 06/02/20 07:38 Docusate Sodium 100 Mg Capsule PO DAILY PRN Constipation Dolutegravir Sodium 50 mg 06/02/20 09:00 06/02/20 11:58 Dolutegravir Sodium 50 Mg Tablet PO 50 mg DAILY BING Administration Donepezil HCl 10 mg 06/02/20 21:00 06/02/20 21:52 Donepezil Hcl 10 Mg Tablet PO Not Given BEDTIME BING Doxazosin Mesylate 1 mg 06/02/20 09:00 06/02/20 11:57 Doxazosin Mesylate 1 Mg Tablet PO 1 mg DAILY BING Administration Ezetimibe 10 mg 06/02/20 09:00 06/02/20 11:59 Ezetimibe 10 Mg Tablet PO 10 mg DAILY [facility] Administration Emtricitabine/Tenofovir Alafenamide 1 tab 06/02/20 09:00 06/02/20 11:57 Emtricitabine/Tenofov Alafenam Tablet PO 1 tab DAILY [facility] Administration Ceftriaxone Sodium 1 gm/ 50 mls @ 100 mls/hr 06/02/20 07:38 06/03/20 08:09 Sodium Chloride IV 100 mls/hr Q24H [facility] Administration Insulin Glargine 30 unit 06/02/20 09:00 06/02/20 11:59 Insulin Glargine,Hum.Rec.Anlog 100 Unit/Ml 10 Ml Vial SUBCUT 30 unit DAILY [facility] Administration Insulin Human Lispro 0 unit 06/02/20 07:30 06/03/20 07:54 Insulin Lispro 100 Unit/Ml 3 Ml Vial SUBCUT Not Given QIDACHS [facility] Protocol Insulin Human Lispro 0 unit 06/02/20 07:38 Insulin Lispro 100 Unit/Ml 3 Ml Vial SUBCUT .COMPLEX [facility] Metoprolol Succinate 25 mg 06/02/20 09:00 06/02/20 11:58 Metoprolol Succinate Er 25 Mg Tab.Er.24h PO 25 mg DAILY [facility] Administration Protocol Omeprazole 20 mg 06/02/20 09:00 06/03/20 07:53 Omeprazole 20 Mg Capsule.Dr PO Not Given DAILY@0630 [facility] Ondansetron HCl 4 mg 06/02/20 07:38 Ondansetron Hcl 4 Mg/2 Ml Vial IVPUSH Q8H PRN Nausea and Vomiting Pharmacy Consult 1 each 06/02/20 05:12 Consult Rx Perform Med Rec MISCELLANE ONCE PRN Consult order Sertraline HCl 25 mg 06/02/20 09:00 06/02/20 11:58 Sertraline Hcl 25 Mg Tablet PO 25 mg DAILY [facility] Administration Sodium Chloride 3 ml 06/02/20 08:00 06/03/20 08:33 0.9 % Sodium Chloride Flush 3 Ml Syringe IVFLUSH 3 ml QSHIFT [facility] Administration Tamsulosin HCl 0.4 mg 06/02/20 09:00 06/02/20 11:58 Tamsulosin Hcl 0.4 Mg Capsule PO 0.4 mg DAILY [facility] Administration Labs CBC & Chem 7: 06/03/20 10:21 06/02/20 03:40 Microbiology Microbiology Results: Microbiology 06/02/20 Unknown Urine [place] Urine Culture - Preliminary Culture in progress. 06/02/20 04:13 Blood - Venous Blood Culture - Preliminary No growth after 24 hours. 06/02/20 04:13 Blood - Venous Blood Culture - Preliminary No growth after 24 hours. Assessment and Plan (1) Pneumonia due to COVID-19 virus: Status: Acute (2) Hematuria: Status: Acute (3) Hx of coronary artery bypass graft: Problem details: SMITH to LAD, SVG to D1, D2, R PDA Status: Acute (4) Atrial flutter, paroxysmal: Problem details: April 2020 Status: Acute (5) Diabetes mellitus: Status: Acute Assessment and Plan: 84-year-old male with past medical history as above who presents to the hospital with complaints of hematuria found to have hypoxia and COVID-19 pneumonia. # Sepsis--better - most likely multifactorial secondary to COVID-19 as well UTI -Treat UTI and covid as below # UTI--culture pending -Continue Ceftriaxone #Covid 19 PNA with acute hypoxic respiratory failure, presently on 5 liter by nasal canula -continue O2 and wean as romel -continue Dexamethasone 6 mg daily # Hematuria - he has history of hematuria in the past, most likely related to UTI versus bladder source this patient has history of TURP - Status post 1 b - has UTI, treat with antibiotics - urology consulted - hemoglobin stable follow CBC # history of coronary artery disease status post CABG - continue home medications # paroxysmal AFib--stop Apixiban due to hematuria # diabetes mellitus - low-dose sliding scale insulin, continue home dose insulin - Presently NPO as nursing has voiced concern of aspirationnn DVT prophylaxis: Apixaban
[2020-06-03 11:30] VITALS: BP 165/125; PULSE 96; RESP 26; TEMP 36.6; O2SAT 95
[2020-06-03 11:59] LABS: SLIDE REVIEW VERIFIED
[2020-06-03 16:00] VITALS: PULSE 108; RESP 24; TEMP 36.6; O2SAT 94
[2020-06-03 17:10] LABS: Glucose, Whole Blood 173 mg/dL (60-115)
[2020-06-03] MEDS: Fluconazole in NaCl,Iso-Osm 100 MG in Container,Empty 0 ML 50 MG IV (17:18)
--- NOTE | 2020-06-03 19:13 | PC.NURSE ---
Patient's CBI urine running clear. Dr. Gandhi notified , verbally ordered to turn off . This RN turned off CBI at 1200, urine remains clear yellow. Patient tolerated well, will continue to monitor.
[2020-06-03 19:46] VITALS: BP 92/62; PULSE 100; RESP 23; TEMP 36.8; O2SAT 99
[2020-06-03 21:35] LABS: Glucose, Whole Blood 173 mg/dL (60-115)
[2020-06-03] MEDS: Lactated Ringers 500 ML 50 ML IV (22:12)
[2020-06-04] VITALS (13 sets, daily range): BP systolic 101–131; BP diastolic 49–83; PULSE 2–140; RESP 17–35; TEMP 36.1–37.1; O2SAT 90–96
--- NOTE | 2020-06-04 07:25 | PC.NURSE ---
Patient restless, anxious, yelling out overnight. Pt did not sleep. Dr. Zamora notified, order for ativan placed around 0640. Day RN aware and will medicate pt once order is verified by pharmacy.
[2020-06-04] MEDS: cefTRIAXone sodium 1 GM in 0.9 % Sodium Chloride 50 ML IV (08:03)
[2020-06-04] MEDS: dexAMETHasone sod phosphate 4 MG/ML VIAL IVPUSH (08:04)
[2020-06-04] MEDS: 0.9 % Sodium Chloride Flush 3 ML SYRINGE IVFLUSH ×2 (08:04→15:32)
[2020-06-04 08:17] LABS: Glucose, Whole Blood 183 mg/dL (60-115)
[2020-06-04] MEDS: LORazepam 2 MG/ML VIAL 0.25 MG IVPUSH ×2 (08:50→12:48)
--- NOTE | 2020-06-04 10:51 | P.PNIM_ITS ---
Subjective Subjective Date of Service: 06/04/20 Interval History: Seen in f/u for sespsis, covid, UTI and hematuria. He's remains very confused, agitated Physical Exam Vital Signs: Vital Signs: Last Vital Signs Temp 97.6 F 06/04/20 08:00 Pulse 118 H 06/04/20 08:05 Resp 26 H 06/04/20 08:00 BP 101/68 06/04/20 08:00 Pulse Ox 96 06/04/20 08:00 Body Mass Index 22.2 General: totally confused Resp: normal respiratory effort CVS: S1,S2,tachy GI: +BS, NT, no distention Skin: No rash Flores cath is clear Neuro: moves all extremities Psych: no insight Objective Data Current Medications Generic Name Dose Route Start Last Admin Trade Name Freq PRN Reason Stop Dose Admin Acetaminophen 650 mg 06/02/20 07:38 Acetaminophen 325 Mg Tablet PO Q6H PRN Pain, Mild (Pain Scale 1-3) Allopurinol 100 mg 06/02/20 09:00 06/04/20 08:04 Allopurinol 100 Mg Tablet PO Not Given DAILY BING Atorvastatin Calcium 80 mg 06/02/20 09:00 06/04/20 08:04 Atorvastatin Calcium 80 Mg Tablet PO Not Given DAILY BING Dexamethasone Sodium Phosphate 4 mg 06/02/20 09:00 06/04/20 08:04 Dexamethasone Sod Phosphate 4 Mg/Ml Vial IVPUSH 4 mg DAILY BING Administration Docusate Sodium 100 mg 06/02/20 07:38 Docusate Sodium 100 Mg Capsule PO DAILY PRN Constipation Dolutegravir Sodium 50 mg 06/02/20 09:00 06/04/20 08:05 Dolutegravir Sodium 50 Mg Tablet PO Not Given DAILY BING Donepezil HCl 10 mg 06/02/20 21:00 06/03/20 20:21 Donepezil Hcl 10 Mg Tablet PO Not Given BEDTIME BING Doxazosin Mesylate 1 mg 06/02/20 09:00 06/04/20 08:05 Doxazosin Mesylate 1 Mg Tablet PO Not Given DAILY BING Ezetimibe 10 mg 06/02/20 09:00 06/04/20 08:06 Ezetimibe 10 Mg Tablet PO Not Given DAILY BING Emtricitabine/Tenofovir Alafenamide 1 tab 06/02/20 09:00 06/04/20 08:06 Emtricitabine/Tenofov Alafenam Tablet PO Not Given DAILY [facility] Hydroxyzine HCl 25 mg 06/04/20 06:08 Hydroxyzine Hcl 25 Mg Tablet PO Q8H PRN anxiety/restlessness Ceftriaxone Sodium 1 gm/ 50 mls @ 100 mls/hr 06/02/20 07:38 06/04/20 08:03 Sodium Chloride IV 100 mls/hr Q24H [facility] Administration Fluconazole 100 mg/ IV 50 mls @ 50 mls/hr 06/03/20 17:00 06/03/20 18:16 Miscellaneous Supplies IV Infused Q24H [facility] Infusion Insulin Glargine 30 unit 06/02/20 09:00 06/04/20 08:56 Insulin Glargine,Hum.Rec.Anlog 100 Unit/Ml 10 Ml Vial SUBCUT Not Given DAILY [facility] Insulin Human Lispro 0 unit 06/02/20 07:30 06/04/20 08:56 Insulin Lispro 100 Unit/Ml 3 Ml Vial SUBCUT Not Given QIDACHS [facility] Protocol Insulin Human Lispro 0 unit 06/02/20 07:38 Insulin Lispro 100 Unit/Ml 3 Ml Vial SUBCUT .COMPLEX [facility] Metoprolol Succinate 25 mg 06/02/20 09:00 06/04/20 08:06 Metoprolol Succinate Er 25 Mg Tab.Er.24h PO Not Given DAILY [facility] Protocol Omeprazole 20 mg 06/02/20 09:00 06/04/20 06:10 Omeprazole 20 Mg Capsule.Dr PO Not Given DAILY@0630 [facility] Ondansetron HCl 4 mg 06/02/20 07:38 Ondansetron Hcl 4 Mg/2 Ml Vial IVPUSH Q8H PRN Nausea and Vomiting Pharmacy Consult 1 each 06/02/20 05:12 Consult Rx Perform Med Rec MISCELLANE ONCE PRN Consult order Sertraline HCl 25 mg 06/02/20 09:00 06/04/20 08:06 Sertraline Hcl 25 Mg Tablet PO Not Given DAILY [facility] Sodium Chloride 3 ml 06/02/20 08:00 06/04/20 08:04 0.9 % Sodium Chloride Flush 3 Ml Syringe IVFLUSH 3 ml QSHIFT [facility] Administration Tamsulosin HCl 0.4 mg 06/02/20 09:00 06/04/20 08:06 Tamsulosin Hcl 0.4 Mg Capsule PO Not Given DAILY [facility] Labs CBC & Chem 7: 06/04/20 11:24 06/04/20 11:24 Microbiology Microbiology Results: Microbiology 06/02/20 04:13 Blood - Venous Blood Culture - Preliminary Yeast 06/02/20 Unknown Urine [place] Urine Culture - Preliminary Yeast Gram positive cocci 06/03/20 17:35 Urine Catheterized - Flores Catheter Urine Culture - Preliminary No growth to date. 06/02/20 04:13 Blood - Venous Blood Culture - Preliminary No growth after 48 hours. Assessment and Plan (1) Pneumonia due to COVID-19 virus: Status: Acute (2) Hematuria: Status: Acute (3) Hx of coronary artery bypass graft: Problem details: SMITH to LAD, SVG to D1, D2, R PDA Status: Acute (4) Atrial flutter, paroxysmal: Problem details: April 2020 Status: Acute (5) Diabetes mellitus: Status: Acute Assessment and Plan: 84-year-old male with HIV with past medical history as above who presents to the hospital with complaints of hematuria found to have hypoxia and COVID-19 pneumonia. # Sepsis--better - most likely multifactorial secondary to COVID-19 as well UTI -Treat UTI and covid as below # Fungemia, Funguria -Continue Diflucan -ID consult #Covid 19 PNA with acute hypoxic respiratory failure, presently on 5 liter by nasal canula -continue O2 and wean as romel -continue Dexamethasone 6 mg daily D3/10 -Ceftriaxone for PNA #Toxic metabolic encephalopathy/delirium--likely multifactoria. Avoid meds that can make it worse # Hematuria--resolved - he has history of hematuria in the past, most likely related to UTI versus bladder source this patient has history of TURP - has UTI, treat with antibiotics - urology consulted - hemoglobin stable follow CBC #HIV--resume HAART when able to take PO vs putting in NGT # history of coronary artery disease status post CABG - continue home medications--holding plavix due to recent hematuria # paroxysmal AFib--stop Apixiban due to hematuria # diabetes mellitus - low-dose sliding scale insulin, continue home dose insulin - Presently NPO as nursing has voiced concern of aspirationnn #Dysphagia--dysphagia diet per speech Discussed and updated and will follow up on her decision on code status DVT prophylaxis: Apixaban
[2020-06-04 11:38] LABS: Hematocrit 44.9 % (42-52); Hemoglobin 14.6 g/dl (14.0-18.0); Mean Corpuscular HGB Conc 32.5 g/dl (31.0-36.0); Mean Corpuscular Hemoglobin 32.8 pg (27.0-33.0); Mean Corpuscular Volume 100.9 fL (80-98); Mean Platelet Volume 11.1 fL (9.4-12.4); Platelet Count 157 X10*3/uL (160-400); Red Blood Count 4.45 X10*6/uL (4.60-5.80); Red Cell Distribution Width 14.7 % (11.0-16.0); White Blood Count 12.1 X10*3/uL (4.8-10.8)
[2020-06-04] MEDS: Ezetimibe 10 MG TABLET PO (11:44)
[2020-06-04] MEDS: Dolutegravir Sodium 50 MG TABLET PO (11:44)
[2020-06-04] MEDS: Omeprazole 20 MG CAPSULE.DR PO (11:44)
[2020-06-04] MEDS: Tamsulosin HCL 0.4 MG CAPSULE PO (11:44)
[2020-06-04] MEDS: allopurinoL 100 MG TABLET PO (11:44)
[2020-06-04] MEDS: Sertraline HCL 25 MG TABLET PO (11:44)
[2020-06-04] MEDS: Emtricitabine/Tenofov Alafenam TABLET 1 TAB PO (11:45)
[2020-06-04] MEDS: Atorvastatin Calcium 80 MG TABLET PO (11:45)
[2020-06-04] MEDS: Doxazosin Mesylate 1 MG TABLET PO (11:45)
[2020-06-04] MEDS: Acetaminophen 325 MG TABLET 650 MG PO (11:46)
[2020-06-04] MEDS: hydrOXYzine HCL 25 MG TABLET PO (11:46)
[2020-06-04] MEDS: Metoprolol Succinate ER 25 MG TAB.ER.24H PO (11:46)
[2020-06-04] MEDS: Insulin Lispro 100 UNIT/ML 3 ML VIAL SUBCUT (12:00)
[2020-06-04 12:03] LABS: Anion Gap 19 (12-20); Blood Urea Nitrogen 32 mg/dL (9-16); Calcium 7.8 mg/dL (8.4-10.2); Carbon Dioxide 20 mmol/L (22-29); Chloride 112 mmol/L (96-108); Creatinine Clr Calc Pharmacy 41.2; Estimated Glomerular Filt Rate 55; Glucose Random 290 mg/dL (60-115); Potassium 3.9 mmol/l (3.3-5.1); Sodium 147 mmol/L (135-145)
[2020-06-04 12:05] LABS: Glucose, Whole Blood 258 mg/dL (60-115)
[2020-06-04] MEDS: Metoprolol Tartrate 25 MG TABLET PO (13:30)
--- NOTE | 2020-06-04 14:03 | MHC.CM.PN ---
EMR reviewed and conversation with pt's primary RN: pt is extremely aggitated and confused with elevated HR. MD had a conversation with pt's spouse regarding code status and plans of care. At this time, she is opting for pt to receive care for COVID and UTI. Initial d/c plan was for a return to home with [facility] if pt was able to as felt strongly about him returning home. ? pt being able to return if he is not lucid or able to participate in his own care needs. Silent referrals placed should pt's spouse decide on that option. CM will continue to follow.
[2020-06-04] MEDS: LORazepam 2 MG/ML VIAL 0.5 MG IVPUSH (14:07)
[2020-06-04] MEDS: Fluconazole in NaCl,Iso-Osm 100 MG in Container,Empty 0 ML 50 MG IV (15:32)
--- NOTE | 2020-06-04 15:38 | W.PM.IDCN ---
History of Present Illness Data of Consult Service Date: 06/04/20 Requesting physician: Juan José Christie Primary Care Provider: Spring Madrid MD HPI Reason for consult: hematuria,chills He presents to hospital with hematuria and chills for a day. He has no respiratory symptoms He has had oxygen 96% on room air and was offered 2 liters which he keeps removing and still is over 94% He has confusion His and daughter have cold and are awaiting COVID testing. He has positive COVID test His blood shows yeast and urine lupe Review of Systems Review of Systems: Yes Unobtainable due to mental status Neurologic: Reports confusion Psychiatric: Psychiatric: Reports confusion PMFSH Past Medical History Medical History Alzheimer disease Atrial flutter, paroxysmal Coronary artery disease Hemorrhoids HIV positive Hx of bladder cancer Hypercholesterolemia Ischemic cardiomyopathy Low back pain Type 2 diabetes mellitus with hyperglycemia Urethral stricture Family History Family History Father Diabetes Brother Diabetes Family history: reviewed and not pertinent Surgical History Surgical History History of appendectomy History of carpal tunnel release History of implantable cardiac defibrillator (ICD) History of mandibular surgery Hx of cardiac cath (~11/2015) Hx of cholecystectomy Hx of coronary artery bypass graft Hx of cystoscopy Hx of eye surgery Hx of lithotripsy Hx of removal of cyst Hx of umbilical hernia repair Social History Social History Household Members: Spouse Housing: Unknown / Unable to assess Alcohol intake: never Smoking Status: Never smoker Use of substances other than those prescribed or required for medical reasons: No Currently Displaying Signs/Symptoms of Drug Intoxication Withdrawal: No Advance Directives: No Do you have thoughts of harming others: None Do you have a plan to hurt others: No Plan service: No Current occupational status: retired Meds Allergies Allergy/AdvReac Type Severity Reaction Status Date / Time Penicillins Allergy Intermediate RASH Verified 06/02/20 14:47 Home Medications Medication Instructions Recorded Confirmed Type emtricitabine 200 mg-tenofovir 1 tab PO DAILY 03/30/20 06/02/20 History alafenamide fumarate 25 mg tablet insulin glargine 100 unit/mL 30 unit SUBCUT DAILY ml 03/30/20 06/02/20 History subcutaneous solution sertraline 25 mg tablet 25 mg PO DAILY 03/30/20 06/02/20 History terazosin 1 mg capsule 1 mg PO DAILY 03/30/20 06/02/20 History dolutegravir 50 mg tablet 50 mg PO DAILY 04/30/20 06/02/20 History donepezil 10 mg tablet 10 mg PO BEDTIME 04/30/20 06/02/20 History ezetimibe 10 mg tablet 10 mg PO DAILY 04/30/20 06/02/20 History metoprolol succinate 25 mg 25 mg PO DAILY 04/30/20 06/02/20 History tablet,extended release 24 hr Physical Exam Vital Signs: Vital Signs: Last Vital Signs Temp 97.7 F 06/04/20 12:00 Pulse 120 H 06/04/20 13:30 Resp 17 06/04/20 12:00 BP 119/50 L 06/04/20 13:30 Pulse Ox 96 06/04/20 12:00 Body Mass Index 22.2 Const: General: confusion Orientation/consciousness: confusion HENMT: Head: Yes normocephalic Resp: Effort & Inspection: normal respiratory effort Cardio: Rate: regular rate Rhythm: regular rhythm GI: Palpation (GI): nontender Skin: General skin exam: no rashes or lesions noted Neuro: General: confusion Extrem: General: Yes normal to inspection Assessment and Plan (1) Hematuria: Qualifiers: Hematuria type: gross Qualified Code(s): R31.0 - Gross hematuria Problem details: Probable cause of fungemia Will treat Caspofungin Status: Acute (2) Pneumonia due to COVID-19 virus: Problem details: May give Dexamethasone Would not give Remdesivir, no hypoxia and unknown duration of COVID Status: Acute (3) Fungemia: Problem details: Caspofungin Status: Acute Results Labs CBC & Chem 7: 06/04/20 11:24 06/04/20 11:24 Labs: Short CBC 06/04/20 Range/Units 11:24 WBC 12.1 H (4.8-10.8) X10*3/uL Hgb 14.6 (14.0-18.0) g/dl Hct 44.9 (42-52) % Plt Count 157 L (160-400) X10*3/uL BMP 06/04/20 11:24 Sodium 147 H Potassium 3.9 Chloride 112 H Carbon Dioxide 20 L BUN 32 H D Creatinine 1.25 Calcium 7.8 L D Microbiology Microbiology Results: Microbiology 06/02/20 04:13 Blood - Venous Blood Culture - Preliminary Yeast 06/02/20 Unknown Urine [place] Urine Culture - Preliminary Yeast Gram positive cocci 06/03/20 17:35 Urine Catheterized - Flores Catheter Urine Culture - Preliminary No growth to date. 06/02/20 04:13 Blood - Venous Blood Culture - Preliminary No growth after 48 hours.
--- NOTE | 2020-06-04 15:51 | W.MHC.ACPN ---
Advanced Care Planning Note Advanced Care Planning Note Narrative: Goals of care discussed including ongoing issues with covid, encephalopathy, uti, fungemia, and underlying dementia and HIV. Patient' Marianela Dominguez and daughter Allyson have opportunities to answer questions which were answerred to their satisfaction and have agreed on changing code status to DNR/DNI. Second conversation with who made final decision witnessed by ELAYNE Dyer. DNR status changed. In total I spent 20 minutes talking to them inluding 2 coversations with and one with daughter all over the phone due to no visitation policy due to covid. Problems Discussed (1) Pneumonia due to COVID-19 virus: (2) Hematuria: (3) Hx of coronary artery bypass graft: (4) Atrial flutter, paroxysmal: (5) Diabetes mellitus:
[2020-06-04 16:44] LABS: Glucose, Whole Blood 187 mg/dL (60-115)
[2020-06-04] MEDS: Caspofungin Acetate 70 MG in 0.9 % Sodium Chloride 250 ML 250 MG IV (17:31)
[2020-06-04] MEDS: dilTIAZem HCL 50 MG/10 ML VIAL IVPUSH (18:03)
[2020-06-04] MEDS: dilTIAZem HCL 125 MG in 0.9 % Sodium Chloride 100 ML IVCONT (19:39)
--- NOTE | 2020-06-04 20:06 | PC.NURSE ---
assumed care at 07:00; patient was alert, confused, disoriented to place, situation, and time, verbally garbled, aphasia; anxious; not replying to questions rationally. hx of alzheimer's; getting steroids; has been npo due to swallowing difficulty. dm--poc was in 180's, held am lantus and lispro and md aware. patient had been very anxious overnight, stressed, tremulous, pulling at tubes and lines shouting and confused. order was made in line supply for ativan and this was not cleared until after shift change by pharmacy, given to patient to alleviate his anxiety with little effect. patient continued to be very anxious and having difficulty coping with requirements of his nursing care; and thus required two more low doses of ativan iv. patient also had prn atarax. by afternoon, patient was calmer. spo2 90-96% in 2 lpm nc; patient with ls dim throughout; work of breathing not increased currently; patient producing sedimentous urine of a pale yellow color; after pulling on his patel, scant bloody drainage from around patel. patient required two new ivs. 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 patient is on covid airborne precautions. patient was consolable and redirectable overall with assistance of anxiolytic medications.
[2020-06-04 21:01] LABS: Glucose, Whole Blood 271 mg/dL (60-115)
[2020-06-05] VITALS (11 sets, daily range): BP systolic 109–138; BP diastolic 50–80; PULSE 81–113; RESP 30–40; TEMP 36.9–39.1; O2SAT 90–95
[2020-06-05] MEDS: 0.9 % Sodium Chloride Flush 3 ML SYRINGE IVFLUSH ×2 (02:16→08:55)
[2020-06-05] MEDS: dilTIAZem HCL 125 MG in 0.9 % Sodium Chloride 100 ML 15 MG IVCONT (04:07)
[2020-06-05] MEDS: Acetaminophen Supp 650 MG SUPP.RECT PR (05:21)
[2020-06-05 06:44] LABS: Anion Gap 19 (12-20); Blood Urea Nitrogen 33 mg/dL (9-16); Calcium 7.6 mg/dL (8.4-10.2); Carbon Dioxide 19 mmol/L (22-29); Chloride 117 mmol/L (96-108); Creatinine Clr Calc Pharmacy 37.9; Estimated Glomerular Filt Rate 50; Glucose Random 292 mg/dL (60-115); Potassium 3.8 mmol/l (3.3-5.1); Sodium 151 mmol/L (135-145)
[2020-06-05 06:52] LABS: Hematocrit 42.9 % (42-52); Mean Corpuscular HGB Conc 32.6 g/dl (31.0-36.0); Mean Corpuscular Hemoglobin 33.1 pg (27.0-33.0); Mean Corpuscular Volume 101.4 fL (80-98); Mean Platelet Volume 12.2 fL (9.4-12.4); Platelet Count 140 X10*3/uL (160-400); Red Blood Count 4.23 X10*6/uL (4.60-5.80); Red Cell Distribution Width 14.9 % (11.0-16.0); White Blood Count 10.1 X10*3/uL (4.8-10.8)
[2020-06-05 08:40] LABS: Glucose, Whole Blood 298 mg/dL (60-115)
[2020-06-05] MEDS: dexAMETHasone sod phosphate 4 MG/ML VIAL IVPUSH (08:55)
--- NOTE | 2020-06-05 10:09 | P.PNIM_ITS ---
Subjective Subjective Date of Service: 06/05/20 Interval History: Seen in f/u for sespsis, covid, UTI and fungemia. He's unresponsice and has been upgraded to NRB overnight Review of Systems Review of Systems: Yes Unobtainable due to mental status Physical Exam Vital Signs: Vital Signs: Last Vital Signs Temp 98.4 F 06/05/20 08:00 Pulse 81 06/05/20 09:01 Resp 32 H 06/05/20 08:00 BP 124/69 06/05/20 09:01 Pulse Ox 94 06/05/20 08:00 Body Mass Index 22.2 Objective Data Current Medications Generic Name Dose Route Start Last Admin Trade Name Freq PRN Reason Stop Dose Admin Acetaminophen 650 mg 06/02/20 07:38 06/04/20 11:46 Acetaminophen 325 Mg Tablet PO 650 mg Q6H PRN Administration Pain, Mild (Pain Scale 1-3) Acetaminophen 650 mg 06/05/20 03:45 06/05/20 05:21 Acetaminophen Supp 650 Mg Supp.Rect CO 650 mg Q8H PRN Administration Fever Allopurinol 100 mg 06/02/20 09:00 06/05/20 09:00 Allopurinol 100 Mg Tablet PO Not Given DAILY BING Atorvastatin Calcium 80 mg 06/02/20 09:00 06/05/20 09:00 Atorvastatin Calcium 80 Mg Tablet PO Not Given DAILY BING Dexamethasone Sodium Phosphate 4 mg 06/02/20 09:00 06/05/20 08:55 Dexamethasone Sod Phosphate 4 Mg/Ml Vial IVPUSH 4 mg DAILY BING Administration Docusate Sodium 100 mg 06/02/20 07:38 Docusate Sodium 100 Mg Capsule PO DAILY PRN Constipation Dolutegravir Sodium 50 mg 06/02/20 09:00 06/05/20 09:00 Dolutegravir Sodium 50 Mg Tablet PO Not Given DAILY BING Donepezil HCl 10 mg 06/02/20 21:00 06/04/20 22:13 Donepezil Hcl 10 Mg Tablet PO Not Given BEDTIME BING Doxazosin Mesylate 1 mg 06/02/20 09:00 06/05/20 09:01 Doxazosin Mesylate 1 Mg Tablet PO Not Given DAILY BING Ezetimibe 10 mg 06/02/20 09:00 06/05/20 09:01 Ezetimibe 10 Mg Tablet PO Not Given DAILY BING Emtricitabine/Tenofovir Alafenamide 1 tab 06/02/20 09:00 06/05/20 09:01 Emtricitabine/Tenofov Alafenam Tablet PO Not Given DAILY [facility] Hydroxyzine HCl 25 mg 06/04/20 06:08 06/04/20 11:46 Hydroxyzine Hcl 25 Mg Tablet PO 25 mg Q8H PRN Administration anxiety/restlessness Diltiazem HCl 125 mg/ Sodium 125 mls @ 0 mls/hr 06/04/20 19:00 06/05/20 06:34 Chloride IVCONT 5 mg/hr .Q0M [facility] 5 mls/hr Titration Protocol Per Protocol Insulin Glargine 30 unit 06/02/20 09:00 06/04/20 08:56 Insulin Glargine,Hum.Rec.Anlog 100 Unit/Ml 10 Ml Vial SUBCUT Not Given DAILY [facility] Insulin Human Lispro 0 unit 06/02/20 07:30 06/05/20 09:00 Insulin Lispro 100 Unit/Ml 3 Ml Vial SUBCUT Not Given QIDACHS [facility] Protocol Insulin Human Lispro 0 unit 06/02/20 07:38 Insulin Lispro 100 Unit/Ml 3 Ml Vial SUBCUT .COMPLEX [facility] Metoprolol Tartrate 25 mg 06/05/20 09:00 06/05/20 09:01 Metoprolol Tartrate 25 Mg Tablet PO Not Given BID [facility] Protocol Omeprazole 20 mg 06/02/20 09:00 06/05/20 04:09 Omeprazole 20 Mg Capsule.Dr PO Not Given DAILY@0630 [facility] Ondansetron HCl 4 mg 06/02/20 07:38 Ondansetron Hcl 4 Mg/2 Ml Vial IVPUSH Q8H PRN Nausea and Vomiting Pharmacy Consult 1 each 06/02/20 05:12 Consult Rx Perform Med Rec MISCELLANE ONCE PRN Consult order Sertraline HCl 25 mg 06/02/20 09:00 06/05/20 09:01 Sertraline Hcl 25 Mg Tablet PO Not Given DAILY [facility] Sodium Chloride 3 ml 06/02/20 08:00 06/05/20 08:55 0.9 % Sodium Chloride Flush 3 Ml Syringe IVFLUSH 3 ml QSHIFT [facility] Administration Tamsulosin HCl 0.4 mg 06/02/20 09:00 06/05/20 09:01 Tamsulosin Hcl 0.4 Mg Capsule PO Not Given DAILY BING Labs CBC & Chem 7: 06/05/20 04:19 06/05/20 04:19 Microbiology Microbiology Results: Microbiology 06/02/20 04:13 Blood - Venous Blood Culture - Final Cheryl albicans 06/03/20 17:35 Urine Catheterized - Flores Catheter Urine Culture - Preliminary Yeast 06/02/20 Unknown Urine [place] Urine Culture - Final Cheryl albicans Enterococcus faecalis 06/02/20 04:13 Blood - Venous Blood Culture - Preliminary Assessment and Plan (1) Hematuria: Problem details: Probable cause of fungemia Will treat Caspofungin Status: Acute (2) Pneumonia due to COVID-19 virus: Problem details: May give Dexamethasone Would not give Remdesivir, no hypoxia and unknown duration of COVID Status: Acute (3) Fungemia: Problem details: Caspofungin Status: Acute Assessment and Plan: 84-year-old male with HIV with past medical history as above who presents to the hospital with complaints of hematuria found to have hypoxia and COVID-19 pneumonia. # Sepsis due to UTI/Fungemia - most likely multifactorial secondary to COVID-19 as well UTI -Treat UTI and covid as below # Fungemia, Funguria -Started on Diflucan on 06/03, ID now recommend Caspogungin #Covid 19 PNA with acute hypoxic respiratory failure, presently on 5 liter by nasal canula -continue O2 and wean as romel -continue Dexamethasone 6 mg daily -Ceftriaxone for PNA #Toxic metabolic encephalopathy/delirium--likely multifactoria. Avoid meds that can make it worse # Hematuria--resolved - he has history of hematuria in the past, most likely related to UTI versus bladder source this patient has history of TURP - has UTI, treat with antibiotics - urology consulted - hemoglobin stable follow CBC #HIV--resume HAART when able to take PO vs putting in NGT # history of coronary artery disease status post CABG - continue home medications--holding plavix due to recent hematuria # paroxysmal AFib--stop Apixiban, not able to take meds and was in RR so continue cardizem iv at constant dose of 5 now # diabetes mellitus - low-dose sliding scale insulin, continue home dose insulin - Presently NPO as nursing has voiced concern of aspirationnn #Unresposivness due to encephalopathy--could also be dueto the effect ativan---monitor avoid ativn this time but maybe necessary to control agitation. # Hypernatremia--add D5 #Dysphagia--dysphagia diet per speech CODE status changed to DNR yesterday 06/04 after discussion with famil, progn osis is poor and if not improving the next 24 hours, I will recommend comfort care DVT prophylaxis: Apixaban
[2020-06-05] MEDS: Heparin Sodium,Porcine 5,000 UNIT/ML VIAL 5000 UNIT SUBCUT ×2 (11:42→23:01)
[2020-06-05] MEDS: Dextrose 5 % 1,000 ML 75 ML IVCONT (11:42)
[2020-06-05] MEDS: LORazepam 2 MG/ML VIAL 0.5 MG IVPUSH ×3 (12:13→20:18)
[2020-06-05] MEDS: Insulin Lispro 100 UNIT/ML 3 ML VIAL SUBCUT ×3 (12:26→23:01)
[2020-06-05 12:39] LABS: Glucose, Whole Blood 306 mg/dL (60-115)
[2020-06-05] MEDS: Morphine Sulfate 2 MG/ML CARTRIDGE 1 MG IVPUSH (13:11)
[2020-06-05 16:16] LABS: Glucose, Whole Blood 245 mg/dL (60-115)
[2020-06-05] MEDS: Morphine Sulfate 2 MG/ML CARTRIDGE IVPUSH (16:56)
[2020-06-05] MEDS: dilTIAZem HCL 125 MG in 0.9 % Sodium Chloride 100 ML 10 MG IVCONT (18:09)
[2020-06-05 21:08] LABS: Glucose, Whole Blood 327 mg/dL (60-115)
[2020-06-06] VITALS (8 sets, daily range): BP systolic 100–115; BP diastolic 55–68; PULSE 76–120; RESP 30–38; TEMP 36.5–38.1; O2SAT 86–100
[2020-06-06] MEDS: Morphine Sulfate 2 MG/ML CARTRIDGE IVPUSH ×4 (00:18→16:01)
[2020-06-06] MEDS: LORazepam 2 MG/ML VIAL 0.5 MG IVPUSH ×2 (01:14→09:13)
[2020-06-06] MEDS: Dextrose 5 % 1,000 ML 75 ML IVCONT (01:15)
[2020-06-06] MEDS: 0.9 % Sodium Chloride Flush 3 ML SYRINGE IVFLUSH ×3 (01:15→16:02)
[2020-06-06] MEDS: dilTIAZem HCL 125 MG in 0.9 % Sodium Chloride 100 ML 10 MG IVCONT (04:47)
--- NOTE | 2020-06-06 05:52 | PC.NURSE ---
~01:25; Pt desatting to low 80% on NRB, RR 34. MD updated. Pt placed on high flow 100% FIO2, 60L along with NRB. Sats range 86-89%. PRN Morphine and Ativan given per order. Pt repositioned Q2hrs, as needed. Will continue to monitor.
[2020-06-06 07:34] LABS: Glucose, Whole Blood 391 mg/dL (60-115)
[2020-06-06] MEDS: Insulin Lispro 100 UNIT/ML 3 ML VIAL SUBCUT (07:53)
[2020-06-06] MEDS: dexAMETHasone sod phosphate 4 MG/ML VIAL IVPUSH (07:54)
[2020-06-06 09:13] LABS: Hematocrit 44.9 % (42-52); Hemoglobin 14.4 g/dl (14.0-18.0); Mean Corpuscular HGB Conc 32.1 g/dl (31.0-36.0); Mean Corpuscular Hemoglobin 32.5 pg (27.0-33.0); Mean Corpuscular Volume 101.4 fL (80-98); Mean Platelet Volume 11.6 fL (9.4-12.4); NRBC Pct Auto 0.1 /100WBC (0.0-0.2); Platelet Count 138 X10*3/uL (160-400); Red Blood Count 4.43 X10*6/uL (4.60-5.80); Red Cell Distribution Width 15.2 % (11.0-16.0); White Blood Count 14.1 X10*3/uL (4.8-10.8)
[2020-06-06 09:54] LABS: Anion Gap 17 (12-20); Carbon Dioxide 20 mmol/L (22-29); Chloride 119 mmol/L (96-108); Potassium 3.8 mmol/l (3.3-5.1); Sodium 152 mmol/L (135-145)
[2020-06-06 09:55] LABS: Blood Urea Nitrogen 38 mg/dL (9-16); Calcium 7.2 mg/dL (8.4-10.2); Creatinine Clr Calc Pharmacy 27.7; Estimated Glomerular Filt Rate 35
[2020-06-06 10:17] LABS: Glucose Random 458 mg/dL (60-115)
--- NOTE | 2020-06-06 10:30 | HO.PM.IMPN ---
Subjective Subjective Date of Service: 06/06/20 Interval History: Seen in f/u for sespsis, covid, UTI and fungemia. He remains unresponsive overnight and oxygen leve is not able to be maintained at a viable level on maximum of high flow Review of Systems Review of Systems: Yes Unobtainable due to mental status Physical Exam Vital Signs: Vital Signs: Last Vital Signs Temp 100.5 F H 06/06/20 07:27 Pulse 99 06/06/20 07:27 Resp 34 H 06/06/20 08:14 BP 115/55 L 06/06/20 07:27 Pulse Ox 86 L 06/06/20 07:27 Body Mass Index 22.2 General: Unresponsive Resp: no respitatory distress CVS: iregular GI: +BS, NT Skin: No rash Neuro: Unresponsive Objective Data Current Medications Generic Name Dose Route Start Last Admin Trade Name Freq PRN Reason Stop Dose Admin Acetaminophen 650 mg 06/02/20 07:38 06/04/20 11:46 Acetaminophen 325 Mg Tablet PO 650 mg Q6H PRN Administration Pain, Mild (Pain Scale 1-3) Acetaminophen 650 mg 06/05/20 03:45 06/05/20 05:21 Acetaminophen Supp 650 Mg Supp.Rect SD 650 mg Q8H PRN Administration Fever Allopurinol 100 mg 06/02/20 09:00 06/06/20 07:54 Allopurinol 100 Mg Tablet PO Not Given DAILY BING Atorvastatin Calcium 80 mg 06/02/20 09:00 06/06/20 07:55 Atorvastatin Calcium 80 Mg Tablet PO Not Given DAILY BING Dexamethasone Sodium Phosphate 4 mg 06/02/20 09:00 06/06/20 07:54 Dexamethasone Sod Phosphate 4 Mg/Ml Vial IVPUSH 4 mg DAILY BING Administration Docusate Sodium 100 mg 06/02/20 07:38 Docusate Sodium 100 Mg Capsule PO DAILY PRN Constipation Dolutegravir Sodium 50 mg 06/02/20 09:00 06/06/20 07:54 Dolutegravir Sodium 50 Mg Tablet PO Not Given DAILY BING Donepezil HCl 10 mg 06/02/20 21:00 06/05/20 20:19 Donepezil Hcl 10 Mg Tablet PO Not Given BEDTIME BING Doxazosin Mesylate 1 mg 06/02/20 09:00 06/06/20 07:55 Doxazosin Mesylate 1 Mg Tablet PO Not Given DAILY [facility] Ezetimibe 10 mg 06/02/20 09:00 06/06/20 07:55 Ezetimibe 10 Mg Tablet PO Not Given DAILY [facility] Emtricitabine/Tenofovir Alafenamide 1 tab 06/02/20 09:00 06/06/20 07:55 Emtricitabine/Tenofov Alafenam Tablet PO Not Given DAILY [facility] Heparin Sodium (Porcine) 5,000 unit 06/05/20 10:30 06/05/20 23:01 Heparin Sodium,Porcine 5,000 Unit/Ml Vial SUBCUT 5,000 unit Q12H BING Administration Hydroxyzine HCl 25 mg 06/04/20 06:08 06/04/20 11:46 Hydroxyzine Hcl 25 Mg Tablet PO 25 mg Q8H PRN Administration anxiety/restlessness Diltiazem HCl 125 mg/ Sodium 125 mls @ 0 mls/hr 06/04/20 19:00 06/06/20 04:47 Chloride IVCONT 10 mg/hr .Q0M BING 10 mls/hr Administration Protocol Per Protocol Dextrose 1,000 mls @ 75 mls/hr 06/05/20 10:30 06/06/20 01:15 D5w IVCONT 75 mls/hr .[id number] BING Administration Insulin Glargine 30 unit 06/02/20 09:00 06/06/20 09:36 Insulin Glargine,Hum.Rec.Anlog 100 Unit/Ml 10 Ml Vial SUBCUT Not Given DAILY [facility] Insulin Human Lispro 0 unit 06/02/20 07:30 06/06/20 07:53 Insulin Lispro 100 Unit/Ml 3 Ml Vial SUBCUT 10 unit QIDACHS [facility] Administration Protocol Insulin Human Lispro 0 unit 06/02/20 07:38 Insulin Lispro 100 Unit/Ml 3 Ml Vial SUBCUT .COMPLEX BING Lorazepam 0.5 mg 06/05/20 11:49 06/06/20 09:13 Lorazepam 2 Mg/Ml Vial IVPUSH 0.5 mg Q4H PRN Administration anxiety/restlesness Metoprolol Tartrate 25 mg 06/05/20 09:00 06/06/20 07:55 Metoprolol Tartrate 25 Mg Tablet PO Not Given BID [facility] Protocol Morphine Sulfate 2 mg 06/05/20 16:45 06/06/20 04:24 Morphine Sulfate 2 Mg/Ml Cartridge IVPUSH 2 mg Q4H PRN Administration Pain, Severe (Pain Scale 7-10) Omeprazole 20 mg 06/02/20 09:00 06/06/20 05:52 Omeprazole 20 Mg Capsule.Dr PO Not Given DAILY@0630 [facility] Ondansetron HCl 4 mg 06/02/20 07:38 Ondansetron Hcl 4 Mg/2 Ml Vial IVPUSH Q8H PRN Nausea and Vomiting Pharmacy Consult 1 each 06/02/20 05:12 Consult Rx Perform Med Rec MISCELLANE ONCE PRN Consult order Sertraline HCl 25 mg 06/02/20 09:00 06/06/20 07:56 Sertraline Hcl 25 Mg Tablet PO Not Given DAILY [facility] Sodium Chloride 3 ml 06/02/20 08:00 06/06/20 07:58 0.9 % Sodium Chloride Flush 3 Ml Syringe IVFLUSH 3 ml QSHIFT BING Administration Tamsulosin HCl 0.4 mg 06/02/20 09:00 06/06/20 07:56 Tamsulosin Hcl 0.4 Mg Capsule PO Not Given DAILY [facility] Labs CBC & Chem 7: 06/06/20 09:06 06/06/20 09:06 Microbiology Microbiology Results: Microbiology 06/02/20 04:13 Blood - Venous Blood Culture - Final Cheryl albicans 06/03/20 17:35 Urine Catheterized - Flores Catheter Urine Culture - Final Cheryl albicans 06/05/20 04:19 Blood - Venous Blood Culture - Preliminary No growth after 24 hours. 06/05/20 04:19 Blood - Venous Blood Culture - Preliminary No growth after 24 hours. 06/02/20 04:13 Blood - Venous Blood Culture - Final Cheryl albicans 06/02/20 Unknown Urine [place] Urine Culture - Final Cheryl albicans Enterococcus faecalis Assessment and Plan (1) Hematuria: Problem details: Probable cause of fungemia Will treat Caspofungin Status: Acute (2) Pneumonia due to COVID-19 virus: Problem details: May give Dexamethasone Would not give Remdesivir, no hypoxia and unknown duration of COVID Status: Acute (3) Fungemia: Problem details: Caspofungin Status: Acute Assessment and Plan: 84-year-old male with HIV with past medical history as above who presents to the hospital with complaints of hematuria found to have hypoxia and COVID-19 pneumonia, complicated by funguria and fungemia. His respiratory failure has progressively worsening is no longer maintaining max flow. He is unresponsive. His prognosis is very poor. Taking everything into accoutn with acute covid with resp failyre, severe hypoxia, fungemia with underlying HIV, CKD, dementia and AFIB and poor candiate for mechanical ventilation, and daughrer have opted for comfort measures only. -Stop all mes except for morphine and ativan for comfort. Conversation to make comfort witnessed by ELAYNE Navarrete
[2020-06-06] MEDS: Scopolamine 1.5 MG PATCH.TD.3 TRANSDERMA (12:27)
[2020-06-07] MEDS: 0.9 % Sodium Chloride Flush 3 ML SYRINGE IVFLUSH (01:22)
--- NOTE | 2020-06-07 04:03 | PM.EVENT ---
Event Note Date of Service: 06/07/20 Event Note: I was notified by RN that no vitals were able to obtained on patient. I examined the patient at the bedside and no pulse is obtainable, no breath sounds audible, code status reviewed which is DNR/DNI. Initial EKG obtained shows PEA. Time of determined to be 04:04 am. Daughter with phone number listed as [phone] to be called now.
--- NOTE | 2020-06-07 04:30 | ECG_ITS ---
Test Reason : verification of expiration Blood Pressure : / mmHG Vent. Rate : 040 BPM Atrial Rate : 040 BPM P-R Int : 098 ms QRS Dur : 040 ms QT Int : 732 ms P-R-T Axes : 086 000 199 degrees QTc Int : 596 ms Atrial pacing with atrial capture without any QRS complexes. Test performed for verification of expiration. Referred By: Bk Boggs Electronically Signed By:Shad Alberts
--- NOTE | 2020-06-07 05:10 | PC.NURSE ---
06/07/20 0510 Patient found unresponsive in bed, no respirations, pulse, no heart or breath sounds auscultated. DNR/DNI status, Dr. Luisito Boggs notified. EKG documented. pronounced at 0404. Daughter notified by physician. Organ bank notified by RN. Sandra clark. Postmortem care performed.
[2020-06-07 08:00] VITALS: BP 148/88; PULSE 72; TEMP 37.1; O2SAT 96
--- NOTE | 2020-06-10 07:48 | PM.DDS ---
Discharge Sum: Prov Provider Primary care physician: Spring Madrid MD Consults: 06/02/20 07:38 Consult to Urology Routine Consulting Provider: Richard Gandhi Reason for consultation: Hematuria Has provider been notified: No 06/03/20 16:03 Consult to Infectious Diseases Routine Consulting Provider: Tila Rosales Reason for consultation: fungemia Has provider been notified: No Discharge Sum: Diag Contributing Factors (1) Hematuria: (2) Pneumonia due to COVID-19 virus: (3) Fungemia: Discharge Sum: Summary Date and Time Date of admission: 06/02/20 05:57 Summary Details: 84-year-old male with HIV, dementia, diabetes who presented to the hospital with hematuria and found to have acute hypoxic respiratory failure due COVID-19 pneumonia and sepsis from funguria and fungemia. Despite approate treatment for sepsis, fungemia, pneumonia and covid, his respiratory failure has progressively worsening is no longer maintaining max flow. He is unresponsive. His prognosis is very poor. Taking everything into accoutn with acute covid with resp failyre, severe hypoxia, fungemia with underlying HIV, CKD, dementia and AFIB and poor candiate for mechanical ventilation, and daughrer have opted for comfort measures only. Additional Data Attending physician: Juan José Taylor MD
== END 2020-06-07 04:04 | disposition expired | DRG 871 ==
LOC: HO.ED 05:20 → HO.ICU 08:02 → HO.ISO 14:20
PROVIDERS: Emergency Medicine; Student in an Organized Health Care Education/Training Program; Admitting Provider Internal Medicine; Emergency Provider Emergency Medicine; PCP Internal Medicine; Visit Provider Internal Medicine
DX: A41.89 Other specified sepsis (principal); U07.1 COVID-19; J12.89 Other viral pneumonia; J96.01 Acute respiratory failure with hypoxia; G92 Toxic encephalopathy; N39.0 Urinary tract infection, site not specified; G30.9 Alzheimer's disease, unspecified; I25.10 Atherosclerotic heart disease of native coronary artery without angina pectoris; Z95.1 Presence of aortocoronary bypass graft; I48.0 Paroxysmal atrial fibrillation; R31.9 Hematuria, unspecified; K21.9 Gastro-esophageal reflux disease without esophagitis; N18.9 Chronic kidney disease, unspecified; F02.80 Dementia in other diseases classified elsewhere, unspecified severity, without behavioral disturbance, psychotic disturbance, mood disturbance, and anxiety; Z88.0 Allergy status to penicillin; Z21 Asymptomatic human immunodeficiency virus [HIV] infection status; Z79.01 Long term (current) use of anticoagulants; Z79.4 Long term (current) use of insulin; Z66 Do not resuscitate; Z79.899 Other long term (current) drug therapy; Z51.5 Encounter for palliative care
CPT/HCPCS: 36415; 71045; 80048; 80076; 81001; 82947; 83605; 83615; 85025; 85027; 85379; 86140; 86850; 86900; 86901; 87040; 87077; 87086; 87088; 87186; 87635; 92526; 92610; 93005; 96365; 96366; 99285; J0637; J0696; J1100; J1450; J1956; J2060; J2270